=== PATIENT | female | born 1975 | race Two or more races ===

== ENCOUNTER 2017-05-18 09:37 | Emergency (ER) | payer SELFPAY ==
[2017-05-18] MEDS ORDERED: PROCHLORPERAZINE MALEATE 10 MG TABLET PO ONE (10:00)
[2017-05-18] MEDS ORDERED: OXYCODONE-ACETAMINOPHEN 5-325 MG TABLET PO ONE (10:01)
[2017-05-18] MEDS ORDERED: DIPHENHYDRAMINE HCL 25 MG CAPSULE PO ONE (10:01)
[2017-05-18] MEDS ORDERED: NAPROXEN 250 MG TABLET PO ONE (10:01)
--- NOTE | 2017-05-18 10:07 | ER Document Report ---
ED Headache - General Chief Complaint: Headache Stated Complaint: HEADACHE Time Seen by Provider: 05/18/17 09:52 Mode of Arrival: Ambulatory Information source: Patient, Outside Facility Records Notes: This 41-year-old female patient comes emergency room complaining of migraine headache since Wednesday that is not easing off with her home medications. She normally takes 2 Elavil at bedtime and Zofran when she does get a migraine headache. Her migraine headaches are usually in the left part of the head. Today she has headaches in the posterior cervical muscles and occipital region and frontal region. There is no nausea and vomiting. The patient is moving to this area from the extreme [facility]. The patient is currently transitioning to male gender getting daily testosterone injections. TRAVEL OUTSIDE OF THE [place] IN LAST 30 DAYS: No - Related Data Allergies/Adverse Reactions: Penicillins Allergy (Verified 05/18/17 09:39) Past Medical History - General Information source: Patient, Outside Facility Records - Social History Smoking Status: Never Smoker Cigarette use (# per day): No Chew tobacco use (# tins/day): No Smoking Education Provided: No Frequency of alcohol use: None Drug Abuse: None Occupation: Unemployed Lives with: Family Family History: Reviewed & Not Pertinent Patient has suicidal ideation: No Patient has homicidal ideation: No - Past Medical History Cardiac Medical History: Reports: None Pulmonary Medical History: Reports: None EENT Medical History: Reports: None Neurological Medical History: Reports: Hx Migraine Endocrine Medical History: Reports: None Renal/ Medical History: Reports: None GI Medical History: Reports: None Musculoskeltal Medical History: Reports None Skin Medical History: Reports None Psychiatric Medical History: Reports: None Past Surgical History: Reports: Hx Orthopedic Surgery - Right knee meniscectomy Review of Systems - Review of Systems Constitutional: No symptoms reported EENT: No symptoms reported Cardiovascular: No symptoms reported Respiratory: No symptoms reported Gastrointestinal: No symptoms reported Genitourinary: No symptoms reported Female Genitourinary: No symptoms reported Musculoskeletal: No symptoms reported Skin: No symptoms reported Hematologic/Lymphatic: No symptoms reported Neurological/Psychological: See HPI, Headaches Physical Exam - Vital signs Vitals: Temp Pulse Resp BP Pulse Ox 98.1 F 80 16 140/106 H 100 05/18/17 09:41 05/18/17 09:41 05/18/17 09:41 05/18/17 09:41 05/18/17 09:41 Interpretation: Normal - General General appearance: Appears well, Alert, Other - Currently does have a hirsute appearance secondary to the testosterone injections In distress: None - HEENT Head: Normocephalic, Atraumatic, Tenderness - There is tenderness to the frontal temporal and occipital scalp muscles. It is particularly tender at the nuchal insertion of the posterior cervical muscles bilaterally. Eyes: Normal Pupils: PERRL Neck: Other - Posterior cervical muscles are very tender going up into nuchal ridge, and spreading out into the trapezius muscles going to the shoulders. There is full range of motion of the neck. - Respiratory Respiratory status: No respiratory distress - Cardiovascular Rhythm: Regular - Back Back: Normal - Extremities General upper extremity: Normal inspection General lower extremity: Normal inspection - Neurological Neuro grossly intact: Yes - Psychological Associated symptoms: Normal affect, Normal mood - Skin Skin Temperature: Warm Skin Moisture: Dry Skin Color: Normal Course - Re-evaluation Re-evalutation: 05/18/17 11:27 Patient reports the headache is much better at this time. There is still tenderness palpate posterior cervical muscles. - Vital Signs Vital signs: Temp Pulse Resp BP Pulse Ox 98.7 F 78 16 134/98 H 100 05/18/17 11:35 05/18/17 11:35 05/18/17 11:35 05/18/17 11:35 05/18/17 11:35 Discharge - Discharge Clinical Impression: Muscle tension headache Condition: Stable Disposition: HOME, SELF-CARE Additional Instructions: Tension Headache: Your problem has been diagnosed as muscle tension headache. This very common type of headache occurs because of tightness in the muscles of the head and neck. The cause may be neck or jaw joint problems, but most commonly the cause is emotional stress. The headache may last hours or days. The treatment of uncomplicated tension headaches is rest and pain medication. Often, the newer antiinflammatory pain medications are prescribed, as these also decrease the irritability of the painful tissues. Muscle relaxers , cold packs, or warm packs are sometimes helpful. Anti-anxiety medication or narcotics are sometimes needed temporarily, but are best avoided in the long run. Your doctor has evaluated your headache problem, and finds no evidence of a serious health problem as a cause for the headache. If your headache becomes more severe, or if new symptoms develop (such as fever, stiff neck, vomiting, or decreasing alertness) you should be re-examined by the physician. //////////////////////////////////////////////////////////////////////////////// /////////////////////////////////////////////////////////// Take medication as prescribed for headache. Take the medication with a caffeinated drink. Take ibuprofen 800 mg every 8 hours for the next few days for its anti- inflammatory effect. You may also take your amitriptyline as it has been prescribed. Try moist heat and/or ice packs to the painful posterior cervical neck muscles. Get plenty of rest. Follow-up with a local medical doctor if not improving. RETURN TO THE EMERGENCY ROOM IF ANY NEW OR WORSENING SYMPTOMS. Prescriptions: Butalbital/Acetaminophen [Butalbital-Acetaminophn 50-325] 1 tab PO Q4 PRN #30 tablet PRN Reason: For Headache Forms: Return to Work
[2017-05-18 11:36] VITALS: BP 134/98
== END 2017-05-18 11:45 | disposition home or self-care (01) ==
LOC: ER 09:37
DX: G44.209 Tension-type headache, unspecified, not intractable (principal); Z88.0 Allergy status to penicillin
CPT/HCPCS: 99283; S0183

== ENCOUNTER 2019-06-10 15:13 | Emergency (ER) | payer SELFPAY ==
[2019-06-10] MEDS ORDERED: ONDANSETRON 4 MG TAB.RAPDIS PO ONE (16:32)
[2019-06-10] MEDS ORDERED: METOCLOPRAMIDE HCL INJ/PF 10 MG/2 ML SDV IV ONE (16:32)
[2019-06-10] MEDS ORDERED: DIPHENHYDRAMINE HCL 50 MG/ML VIAL IV ONE (16:32)
[2019-06-10] MEDS ORDERED: NORMAL SALINE 1000 ML 1,000 ML IV ONE (16:33)
[2019-06-10] MEDS ORDERED: DIAZEPAM 5 MG TABLET PO ONE (16:33)
--- NOTE | 2019-06-10 16:36 | ER Document Report ---
ED Medical Screen (RME) - General Chief Complaint: Headache Stated Complaint: HEADACHE,NECK PAIN Time Seen by Provider: 06/10/19 16:25 TRAVEL OUTSIDE OF THE [place] IN LAST 30 DAYS: No - HPI Notes: 06/10/19 16:33 43 year old female that identifies as a male to the ED with C/O headache that has been ongoing since yesterday. states it started on the right sided and radiates down the neck. Feels like prior migraines. Has been trying to take medicines at home without fail. Admits to nausea, photophobia. States this is not the worst headache ever. Denies fevers, chills I performed a brief medical screening exam on the patient and determined the patient will need further evaluation by mainside provider. I have placed inital orders to aid in experditing patient's care. - Related Data Allergies/Adverse Reactions: amitriptyline Allergy (Verified 06/10/19 16:24) aspirin Allergy (Verified 06/10/19 16:24) Penicillins Allergy (Verified 06/10/19 16:24) Home Medications: Fiorocet, gabapentin, topamax, propanolol, Zofran Past Medical History - Social History Frequency of alcohol use: None Drug Abuse: None Neurological Medical History: Reports: Hx Migraine Renal/ Medical History: Denies: Hx Peritoneal Dialysis Past Surgical History: Reports: Hx Orthopedic Surgery - Right knee meniscectomy - Immunizations Immunizations up to date: Yes Physical Exam - Vital signs Vitals: Temp Pulse Resp BP Pulse Ox 98.2 F 62 18 137/97 H 100 06/10/19 15:23 06/10/19 15:23 06/10/19 15:23 06/10/19 15:23 06/10/19 15:23 Course - Vital Signs Vital signs: Temp Pulse Resp BP Pulse Ox 98.2 F 62 18 137/97 H 100 06/10/19 15:23 06/10/19 15:23 06/10/19 15:23 06/10/19 15:23 06/10/19 15:23
[2019-06-10] MEDS ORDERED: DIPHENHYDRAMINE HCL 50 MG/ML VIAL ONE (18:38)
[2019-06-10] MEDS ORDERED: METOCLOPRAMIDE HCL INJ/PF 10 MG/2 ML SDV ONE (18:39)
--- NOTE | 2019-06-10 21:11 | ER Document Report ---
ED Headache - General Chief Complaint: Headache Stated Complaint: HEADACHE,NECK PAIN Time Seen by Provider: 06/10/19 16:25 Primary Care Provider: [facility] [Provider Group] - Follow up as needed SEAN ONTIVEROS MD [NO LOCAL MD] - Follow up as needed DIANA ECKERT PA-C [Primary Care Provider] - Follow up as needed Notes: Patient is a 43-year-old female who presents to the emergency department with a chief complaint of right-sided neck pain and a migraine headache. Patient states that he feels like one of their normal headaches. Pain is on the right side of their neck. Patient is a female, who had advised this male. TRAVEL OUTSIDE OF THE [place] IN LAST 30 DAYS: No - Related Data Allergies/Adverse Reactions: amitriptyline Allergy (Verified 06/10/19 16:24) aspirin Allergy (Verified 06/10/19 16:24) Penicillins Allergy (Verified 06/10/19 16:24) Home Medications: Fiorocet, gabapentin, topamax, propanolol, Zofran Past Medical History - Social History Smoking Status: Never Smoker Frequency of alcohol use: None Drug Abuse: None Family History: Reviewed & Not Pertinent Patient has suicidal ideation: No Patient has homicidal ideation: No Neurological Medical History: Reports: Hx Migraine Renal/ Medical History: Denies: Hx Peritoneal Dialysis Past Surgical History: Reports: Hx Orthopedic Surgery - Right knee meniscectomy - Immunizations Immunizations up to date: Yes Review of Systems - Review of Systems Notes: REVIEW OF SYSTEMS: CONSTITUTIONAL : Denies recent illness. Denies recent unintentional weight loss. Denies fever, chills, or sweats. EENT: Denies eye, ear, throat, or mouth pain, discharge, or symptoms. Denies nasal or sinus congestion. CARDIOVASCULAR: Denies chest pain. RESPIRATORY: Denies shortness of breath, cough, congestion, difficulty breathing, or wheezing. GASTROINTESTINAL: Denies nausea, vomiting, and diarrhea. Denies abdominal pain. Denies constipation. GENITOURINARY: Denies difficulty urinating, burning, blood in urine, urgency or frequency. MUSCULOSKELETAL: See HPI. Denies joint pain or swelling. SKIN: Denies rash, itchiness, or lesions HEMATOLOGIC : Denies easy bruising or bleeding. LYMPHATIC: Denies swollen, painful, enlarged glands. NEUROLOGICAL: See HPI. PSYCHIATRIC: Denies stress, anxiety, alteration in sleep patterns, or depression. All other systems reviewed and negative. Physical Exam - Vital signs Vitals: Temp Pulse Resp BP Pulse Ox 98.2 F 62 18 137/97 H 100 06/10/19 15:23 06/10/19 15:23 06/10/19 15:23 06/10/19 15:23 06/10/19 15:23 - Notes Notes: PHYSICAL EXAMINATION: GENERAL: Appears well, healthy, well-nourished, no acute distress. HEAD: Normocephalic, atraumatic. EYES: PERRL, conjunctiva normal, all extraocular movements intact, sclera nonicteric ENT: Moist mucous membranes. NECK: Supple, no noticeable swelling, redness, rash. Normal range of motion. LUNGS: Equal breath sounds bilaterally and clear to auscultation. No wheezes rales or rhonchi. CARDIOVASCULAR: S1-S2, regular rate, regular rhythm. Radial pulses 2+, normal. ABDOMEN: Normoactive bowel sounds. Soft, nontender, no guarding, no rebound tenderness, and no masses palpated. EXTREMITIES: Normal strength and range of motion, no pitting or edema. No cyanosis. NEUROLOGICAL: Moves all extremities upon command. Strength 5/5 in all extremities. PSYCH: Normal mood, normal affect. SKIN: Warm, dry. No rash, lesions, ulcerations noted. Normal skin turgor. Course - Re-evaluation Re-evalutation: 06/10/19 21:30 Patient does have pain to the right scapular area. I massaged the area to help with the pain. Patient will receive Toradol and Robaxin here in the emergency department. 06/10/19 22:00 Patient states they feel better after receiving Toradol and Robaxin. Patient will be sent home with Robaxin and Reglan to help with symptoms. Patient has no neurological deficits noted. A very low suspicion for an intracranial hemorrhage, intracranial mass, TIA, stroke, or any life-threatening etiology at this time. Patient will follow-up with their primary care provider. Follow-up precautions were given. Verbal discharge instructions were given to the pat ient. They verbalized understanding. They are stable for discharge. - Vital Signs Vital signs: Temp Pulse Resp BP Pulse Ox 97.7 F 61 14 142/86 H 100 06/10/19 22:01 06/10/19 22:01 06/10/19 22:01 06/10/19 22:01 06/10/19 22:01 Discharge - Discharge Clinical Impression: Neck pain Migraine headache Qualifiers: Migraine type: other Status migrainosus presence: with status migrainosus Intractability: not intractable Qualified Code(s): G43.801 - Other migraine, not intractable, with status migrainosus Condition: Stable Disposition: HOME, SELF-CARE Additional Instructions: You were seen today for a migraine headache. Please follow-up with your primary care doctor regarding today's ED visit. Return to emergency department immediately if you develop a headache that gets to its maximum severity within 20 minutes of onset, you pass out, you develop weakness, numbness, changes in your vision, become unable to keep any fluids down for more than 12 hours, or develop a fever greater than 100.4 degrees Fahrenheit. If you develop a similar migraine headache in the future I recommend that you immediately take 600 mg of ibuprofen and 50 mg of Benadryl and go to sleep as quickly as possible. This can often prevent your migraine headache from becoming severe. Do not take any ibuprofen you tonight, as you received Toradol. You can take ibuprofen in the morning. You also have some muscle tension here in the emergency department. You are being sent home with Robaxin, a muscle relaxer. Please take as needed. Prescriptions: Methocarbamol [Robaxin 500 mg Tablet] 500 mg PO QHS PRN #12 tablet PRN Reason: Metoclopramide HCl [Reglan 10 mg Tablet] 1 - 2 tab PO ASDIR PRN #15 tablet PRN Reason: Forms: Return to Work Referrals: DIANA ECKERT PA-C [Primary Care Provider] - Follow up as needed SEAN ONTIVEROS MD [NO LOCAL MD] - Follow up as needed [facility] [Provider Group] - Follow up as needed
[2019-06-10] MEDS ORDERED: KETOROLAC TROMETHAMINE INJ/PF 30 MG/1 ML SDV IV ONE (21:23)
[2019-06-10] MEDS ORDERED: METHOCARBAMOL 500 MG TABLET PO ONE (21:27)
[2019-06-10 22:59] VITALS: BP 142/86
== END 2019-06-10 22:04 | disposition home or self-care (01) ==
LOC: ER 15:13
DX: G43.801 Other migraine, not intractable, with status migrainosus (principal); M54.2 Cervicalgia; Z88.6 Allergy status to analgesic agent; Z88.0 Allergy status to penicillin
CPT/HCPCS: 99283; 96361; 96374; 96375; J1200; J1885; J2765; J7030

== ENCOUNTER 2019-06-13 22:10 | Emergency (ER) | payer OTHER ==
[2019-06-13] MEDS ORDERED: ACETAMINOPHEN 325 MG TABLET PO ONE (23:11)
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
[2019-06-14 00:29] LABS: ALBUMIN 4.9 g/dL (3.5-5.0); ALKALINE PHOSPHATASE 125 U/L (38-126); ANION GAP 12 (5-19); ASPARTATE AMINO TRANSFERASE 29 U/L (14-36); BILIRUBIN,DIRECT 0.3 mg/dL (0.0-0.4); BILIRUBIN,TOTAL 0.7 mg/dL (0.2-1.3); BLOOD UREA NITROGEN 12 mg/dL (7-20); CALCIUM 10.2 mg/dL (8.4-10.2); CARBON DIOXIDE 21 mmol/L (22-30); CHLORIDE 107 mmol/L (98-107); GLUCOSE 106 mg/dL (75-110); POTASSIUM 4.1 mmol/L (3.6-5.0); TOTAL PROTEIN 8.6 g/dL (6.3-8.2)
[2019-06-14 00:30] LABS: HEMATOCRIT 45.2 % (36.0-47.0); HEMOGLOBIN 15.2 g/dL (12.0-15.5); MEAN CORPUSCULAR HEMOGLOBIN 28.6 pg (27.0-33.4); MEAN CORPUSCULAR HGB CONC 33.6 g/dL (32.0-36.0); MEAN CORPUSCULAR VOLUME 85 fl (80-97); PLATELET COUNT 222 10^3/uL (150-450); RED BLOOD COUNT 5.31 10^6/uL (3.72-5.28); RED CELL DISTRIBUTION WIDTH 14.6 % (11.5-14.0); WHITE BLOOD COUNT 9.2 10^3/uL (4.0-10.5)
[2019-06-14 00:38] LABS: A TYPE INFLUENZA AG NEGATIVE (NEGATIVE); B INFLUENZA AG NEGATIVE (NEGATIVE)
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
[2019-06-14 00:57] LABS: ABSOLUTE LYMPHOCYTES# (MANUAL) 0.2 10^3/uL (0.5-4.7); ABSOLUTE MONOCYTES # (MANUAL) 0.3 10^3/uL (0.1-1.4); ANISOCYTOSIS SLIGHT; BASOPHILS % (MANUAL) 0 % (0-2); EOSINOPHILS % (MANUAL) 0 % (0-6); LYMPHOCYTES % (MANUAL) 2 % (13-45); MONOCYTES % (MANUAL) 3 % (3-13); OVALOCYTES SLIGHT; PLATELET COMMENT ADEQUATE; SEGMENTED NEUTROPHILS % (MAN) 95 % (42-78); TOTAL CELLS COUNTED 100
--- NOTE | 2019-06-14 01:04 | RADIOLOGY REPORT (SQ) ---
XR CHEST 2 VIEWS EXAM DATE: 06/13/2019 11:35 PM [employer] HISTORY: Cough, fever. COMPARISON: None. FINDINGS: Normal heart size without pulmonary edema. No focal consolidation is identified. No pleural effusions or pneumothorax. IMPRESSION: No evidence of acute cardiopulmonary disease.
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
--- NOTE | 2019-06-14 01:13 | ER Document Report ---
ED Headache - General Chief Complaint: Headache Stated Complaint: HEADACHE AND DEEP BREATHING Time Seen by Provider: 06/13/19 23:30 Primary Care Provider: DIANA ECKERT PA-C [Primary Care Provider] - Follow up as needed TRAVEL OUTSIDE OF THE [place] IN LAST 30 DAYS: No - Related Data Allergies/Adverse Reactions: amitriptyline Allergy (Verified 06/10/19 16:24) aspirin Allergy (Verified 06/10/19 16:24) Penicillins Allergy (Verified 06/10/19 16:24) Home Medications: gabapentin. topamax. zofran Past Medical History - Social History Smoking Status: Never Smoker Family History: Reviewed & Not Pertinent Patient has suicidal ideation: No Patient has homicidal ideation: No Neurological Medical History: Reports: Hx Migraine Renal/ Medical History: Denies: Hx Peritoneal Dialysis Past Surgical History: Reports: Hx Orthopedic Surgery - Right knee meniscectomy - Immunizations Immunizations up to date: Yes Physical Exam - Vital signs Vitals: Temp Pulse Resp BP Pulse Ox 102.1 F H 110 H 20 183/84 H 110 H 06/13/19 22:39 06/13/19 22:39 06/13/19 22:39 06/13/19 22:39 06/13/19 22:39 Course - Vital Signs Vital signs: Temp Pulse Resp BP Pulse Ox 102.1 F H 110 H 20 183/84 H 110 H 06/13/19 22:39 06/13/19 22:39 06/13/19 22:39 06/13/19 22:39 06/13/19 22:39 - Laboratory Result Diagrams: 06/13/19 23:52 06/13/19 23:52 Laboratory results interpreted by me: 06/13/19 06/13/19 23:52 23:52 RBC 5.31 H RDW 14.6 H Seg Neuts % (Manual) 95 H Lymphocytes % (Manual) 2 L Abs Neuts (Manual) 8.7 H Abs Lymphs (Manual) 0.2 L Carbon Dioxide 21 L Est GFR (MDRD) Non-Af 53 L Total Protein 8.6 H Discharge - Discharge Referrals: DIANA ECKERT PA-C [Primary Care Provider] - Follow up as needed
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
[2019-06-14 02:20] VITALS: BP 120/77
== END 2019-06-14 02:20 | disposition home or self-care (01) ==
LOC: ER 22:10
DX: G44.319 Acute post-traumatic headache, not intractable (principal); M54.5 Low back pain; M54.9 Dorsalgia, unspecified; V87.7XXA Person injured in collision between other specified motor vehicles (traffic), initial encounter
CPT/HCPCS: 36415; 70450; 71046; 72110; 80053; 85025; 87804; 99284